=== PATIENT | female | born 1995 | race African-American/Black ===

== ENCOUNTER 2016-11-13 13:11 | Emergency (ER) | payer OTHER ==
[~2016-11-13 13:11] MED LIST: BACTRIM DS TABL1 TA1 PO; FLEXERIL10 M1 PO; MOTRIN20 MG/ML PO; PYRIDIUM PO
[2016-11-13] MEDS ORDERED: NO MEDICATIONS (13:12)
[2016-11-13 14:18] LABS: URINE SOURCE CLEAN CATCH
[2016-11-13 14:22] LABS: URINE APPEARANCE CLEAR; URINE BILIRUBIN NEG (NEG); URINE BLOOD NEG (NEG); URINE COLOR YELLOW; URINE GLUCOSE NEG (NORM); URINE KETONE NEG (NEG); URINE LEUKOCYTE ESTERASE NEG (NEG); URINE NITRATE NEG (NEG); URINE PROTEIN NEG (NEG); URINE UROBILINOGEN 0.2 MG/DL (NORM)
[2016-11-13 14:41] LABS: MICRO INDICATED? NO
[2016-11-16 15:43] LABS: CHLAMYDIA TRACH Not Detected (Not Detected); N GONOR Not Detected (Not Detected)
== END 2016-11-13 15:57 | disposition home or self-care (01) ==
LOC: SED 13:11
PROVIDERS: Physician Assistant
DX: N76.0 Acute vaginitis (principal); R30.0 Dysuria; F17.210 Nicotine dependence, cigarettes, uncomplicated
CPT/HCPCS: 81003; 84703; 87210; 87491; 87591; 87808; 87905; 96372; 99283; 99284; J0696

== ENCOUNTER 2017-03-01 15:14 | Emergency (ER) | payer OTHER ==
[~2017-03-01 15:14] MED LIST changes: +NO MEDICATIONS
[2017-03-03 22:31] LABS: CHLAMYDIA TRACH Not Detected (Not Detected); N GONOR Detected (Not Detected)
== END 2017-03-01 16:55 | disposition home or self-care (01) ==
LOC: SED 15:14
PROVIDERS: Emergency Medicine
DX: N72 Inflammatory disease of cervix uteri (principal); J45.909 Unspecified asthma, uncomplicated; Z98.890 Other specified postprocedural states; F17.210 Nicotine dependence, cigarettes, uncomplicated
CPT/HCPCS: 87491; 87591; 87808; 87905; 96372; 99283; J0696